=== PATIENT | female | born 1945 | race Caucasian/White ===

== ENCOUNTER 2018-08-28 08:31 | Emergency (ER) | payer OTHER, SELFPAY ==
[2018-08-28 08:36] VITALS: BP 122/66; PULSE 64; RESP 16; TEMP 36.5; O2SAT 100; BMI 24.4
--- NOTE | 2018-08-28 08:54 | ED.UPPEXIN ---
HPI - Extremity Injury (Upper) General Chief Complaint: Extremity Injury, Upper Stated Complaint: Fell last night, injured rt shoulder/back Time Seen by Provider: 08/28/18 08:46 Source: patient Mode of arrival: ambulatory Limitations: no limitations History of Present Illness HPI narrative: This is a 72-year-old female who comes to the emergency department with complaint of right shoulder pain and sort of lateral chest pain. Patient states last night she fell down the stairs. She [place], she thinks she got up to urinate about 1:00 a.m. and went to go the bathroom. In-home she normally lives in the bathroom is to the right, so she went to the right which is where the stairs are and fell down. She states that she isn't exactly sure how she felt something she sort of slid on her back. She did not hit her head. She has some abrasions on her shoulder and back, she has pain particularly in her right shoulder and with movement. As well as the right rib area. Patient states that she does not have any shortness of breath. She does not any difficulty with breathing. She denies loss of consciousness. She denies any vision changes, dizziness. No nausea no vomiting. She did have to urinate afterwards but had gotten up to go urinate. She has not had any other changes bowel she denies any other injuries to extremities. she takes blood pressure medication, she states she occasionally will take an aspirin but not regularly. She has had a tubal ligation ankle surgery. She states she has had hydrocodone in the past and it made her nauseated but no other major drug allergies. She states tetanus is up-to-date. Related Data Previous Rx's Medication Instructions Recorded tramadol [Ultram] 50 mg PO Q6H PRN #10 tab 08/28/18 Allergies Allergy/AdvReac Type Severity Reaction Status Date / Time acetaminophen [From Vicodin] AdvReac Nausea Verified 08/28/18 08:41 hydrocodone [From Vicodin] AdvReac Nausea Verified 08/28/18 08:41 GENERIC: NKDA - NO KNOWN Allergy Unknown Uncoded 09/07/17 13:06 DRUG ALLERGIES Review of Systems Review of Systems ROS Unobtainable: All systems reviewed & are unremarkable except as noted in HPI and below Eyes Denies change in vision ENT Ears, Nose, Mouth, and Throat: Denies neck pain and Denies other (head injury) Cardiovascular Reports chest pain (right ribs ), Denies edema, Denies lightheadedness, Denies dyspnea and Denies dyspnea on exertion Respiratory Denies chest congestion, Denies cough, Denies excessive phlegm production, Denies pain with cough, Denies dyspnea, Denies dyspnea on exertion and Denies wheezing Gastrointestinal Gastrointestinal: Denies abdominal pain, Denies change in bowel habits, Denies fecal incontinence, Denies diarrhea, Denies nausea and Denies vomiting Genitourinary Denies hematuria, Denies flank pain, Denies urinary incontinence and Denies urinary urgency Musculoskeletal Reports as per HPI, Denies back pain, Reports arthralgias (right shoulder), Reports limited range of motion, Denies muscle weakness, Denies neck pain, Denies numbness, Denies tingling and Reports other (right sided/ribs) Integumentary/Breasts Reports wounds (abrasions) Neurologic Denies numbness and Denies tingling Allergic/Immunologic Denies wheezing [facility], [facility] Medical History (Updated 08/28/18 @ 10:02 by Susie Hobson DO) Hypertension (Chronic) Surgical History (Updated 08/28/18 @ 09:07 by Susie Hobson DO) H/O tubal ligation (Chronic) History of ankle surgery (Chronic) Exam Narrative Exam Narrative: GEN: Patient appears in moderate distress. HEAD: No evidence of trauma, no raccoon/Jeff sign. NECK: Nontender, painless range of motion, trachea midline Negative Nexus criteria, there is no line tenderness, distracting injury, altered mental status, neuro deficit, recent EtOH. EYES: PERRLA, EOMI ENT: External inspection normal, trachea is midline, TM's are normal no hemotypanum, Nares are clear, no septal hematoma, no dental or oral injury, airway is normal and with normal occlusion, No bony tenderness RESP: Chest is nontender and has symmetric movement, no ecchymosis, breath sounds are normal no crackles, wheezes or rales CVS: Heart sounds are normal, no murmur noted, No JVD. ABG/GI: Nontender, soft, normal bowel sounds, no distention, no organomegaly, pelvic rock is negative NEURO: Oriented AOx3, neuro is grossly intact, sensation and motor is normal all 4 extremities moving, cranial nerves II through XII are intact, GCS is 15 PSYCH: Normal mood and affect SKIN: Patient has a knee 3 x 5 cm abrasion on her left posterior shoulder she also has some small abrasions above the right shoulder. warm and dry, no crepitus and without decubitus BACK: No CVA tenderness, no vertebral tenderness, no step-off's, no crepitus EXT: Patient has some mild tenderness over the right shoulder, she does not wish to move the shoulder, she has equal pulp roller bilaterally, no bony tenderness of the elbow forearm or wrist or hand, hips are nontender, no pedal edema, normal color and temperature, normal range of motion of extremities with normal tendon exam, 2+ pulses in all four extremities Initial Vital Signs Initial Vital Signs: Vital Signs Temperature 97.7 F 08/28/18 08:36 Pulse Rate 64 08/28/18 08:36 Respiratory Rate 16 08/28/18 08:36 Blood Pressure 122/66 08/28/18 08:36 Pulse Oximetry 100 08/28/18 08:36 Scores GCS [place] coma scale eye opening: Spontaneous Nicole coma scale verbal response: Orientated [place] coma scale motor response: Obey commands [place] coma scale total score: 15 Course Orders Ordered: ED Orders 08/28/18 09:03 XR ribs RT min 3V w CXR1V Stat XR shoulder RT min 2V Stat Vital Signs - 8 hr 08/28/18 08:36 Temperature 97.7 F Pulse Rate 64 Respiratory Rate 16 Blood Pressure 122/66 Pulse Oximetry 100 MDM - Extremity Injury (Upper) Imaging Data Chest x-ray: Radiologist's impression: Josefa Romero 72 F [address] [address] XRay Report Signed Patient: Josefa Romero FMR#: [id number] : 8Acct:[id number] Age/Sex: 72 / FDate of Service: 08/28/18 Loc: ED Accession Number: [id number] Procedure: XR ribs RT min 3V w CXR1V Ordering Provider: Susie Hobson D.O. PROCEDURE: XR RIBS RT MIN 3V W CXR 1V INDICATIONS: right rib pain, right shoulder pain, fell down stairs 1am TECHNIQUE: 2 views of the right ribs were acquired, along with a single view chest. COMPARISON: None. FINDINGS: Surgical changes and devices: None. Bones and chest wall: No displaced rib fracture identified. No suspicious bony lesions. Overlying soft tissues appear unremarkable. Lungs and pleura: No pleural effusions or pneumothorax. Lungs appear clear. Mediastinum: Mediastinal contours appear normal. Heart size is normal. IMPRESSION: 1. No displaced rib fracture identified. Dictated by: Joaquin Nguyen M.D. on 08/28/2018 at 9:26 Approved by: Joaquin Nguyen M.D. on 08/28/2018 at 9:27 shoulder xray right: Radiologist's impression: Josefa Romero 72 F 1945 [place] [address] XRay Report Signed Patient: Josefa Romero FMR#: [id number] : 8Acct:[id number] Age/Sex: 72 / FDate of Service: 08/28/18 Loc: ED Accession Number: [id number] Procedure: XR shoulder RT min 2V Ordering Provider: Susie Hobson D.O. PROCEDURE: XR SHOULDER RT MIN 2V INDICATIONS: right shoulder pain, hurts to move. feel down stairs TECHNIQUE: 3 views of the shoulder were acquired. COMPARISON: None. FINDINGS: Bones: No fractures or dislocations. There is mild acromioclavicular joint degeneration. No suspicious bony lesions. Visualized ribs appear intact. Soft tissues: No suspicious soft tissue calcifications. IMPRESSION: 1. No fracture or subluxation. Dictated by: Joaquin Nguyen M.D. on 08/28/2018 at 9:27 Approved by: Joaquin Nguyen M.D. on 08/28/2018 at 9:28 [facility] Narrative Medical decision making narrative: Patient's chest x-ray, rib series as well as shoulder x-ray did not show any fracture. Patient is pretty tender in the shoulder and we discussed she could have muscle tear, such as rotator cuff, ligament or tendon involvement. Also discussed the patient's can occasionally have very small fractures that do not show until there is healing. Patient was placed in a sling, plan for follow-up with primary. She is given a short course of pain medication as they are staying [place] [employer] [place] is a very difficult for them to return for re-evaluation or pain medications if not controlled with ibuprofen or Tylenol. Patient and I discussed continuing range of motion in the shoulder to avoid frozen shoulder. She has a primary care Miguel Foley that she will set up for follow-up. Discharge Plan Departure Patient Disposition: Home Clinical Impression: Injury of right shoulder Qualifiers: Encounter type: initial encounter Qualified Code(s): S49.91XA - Unspecified injury of right shoulder and upper arm, initial encounter Abrasion of back Qualifiers: Encounter type: initial encounter Fall down stairs Qualifiers: Encounter type: initial encounter Qualified Code(s): W10.8XXA - Fall (on) (from) other stairs and steps, initial encounter Discharge Date/Time: 08/28/18 10:43 Interventions: ED Discharge Assessment Last Done: 08/28/18 10:42 Instructions: Shoulder Sprain Activity Restrictions/Additional Instructions: Follow-up with primary care in the next 5-7 days for recheck if symptoms are not improving. You may potentially have injury to the ligaments and/or tendons or muscles within the shoulder which will not show up on x-ray. You may take ibuprofen up to 800 mg every 8 hours as well as Tylenol up to a 1000 mg every 8 hours as needed for pain. Splint Care: Keep splint clean and dry. Elevated affected body part to decrease swelling. Make sure that you continue to move your shoulder through range of motion gently daily to avoid frozen shoulder. OK to use ice pack on the affected body part. Use for 15-20 minutes each time, for 5-6x per day. If you develop worsening pain, numbness, tingling, discoloration of the affected body part, loosen the sling, and either see your doctor for an urgent re-assessment, or return to the Emergency Department. Return to the Emergency Department for any new or worsening symptoms. Return to the emergency department for new or concerning symptoms, new weakness, numbness, loss of sensation or inability to move her arm, pallor or cyanosis. Prescriptions: New tramadol [Ultram] 50 mg tablet 50 mg PO Q6H PRN (Reason: pain) Qty: 10 RF: 0
--- NOTE | 2018-08-28 09:03 | DI.RAD.S_ITS ---
PROCEDURE: XR RIBS RT MIN 3V W CXR 1V INDICATIONS: right rib pain, right shoulder pain, fell down stairs 1am TECHNIQUE: 2 views of the right ribs were acquired, along with a single view chest. COMPARISON: None. FINDINGS: Surgical changes and devices: None. Bones and chest wall: No displaced rib fracture identified. No suspicious bony lesions. Overlying soft tissues appear unremarkable. Lungs and pleura: No pleural effusions or pneumothorax. Lungs appear clear. Mediastinum: Mediastinal contours appear normal. Heart size is normal. IMPRESSION: 1. No displaced rib fracture identified. Dictated by: Joaquin Nguyen M.D. on 08/28/2018 at 9:26 Approved by: Joaquin Nguyen M.D. on 08/28/2018 at 9:27
--- NOTE | 2018-08-28 09:03 | DI.RAD.S_ITS ---
PROCEDURE: XR SHOULDER RT MIN 2V INDICATIONS: right shoulder pain, hurts to move. feel down stairs TECHNIQUE: 3 views of the shoulder were acquired. COMPARISON: None. FINDINGS: Bones: No fractures or dislocations. There is mild acromioclavicular joint degeneration. No suspicious bony lesions. Visualized ribs appear intact. Soft tissues: No suspicious soft tissue calcifications. IMPRESSION: 1. No fracture or subluxation. Dictated by: Joaquin Nguyen M.D. on 08/28/2018 at 9:27 Approved by: Joaquin Nguyen M.D. on 08/28/2018 at 9:28
--- NOTE | 2018-08-28 09:09 | ED_ITS ---
HPI - Extremity Injury (Upper) General Chief Complaint: Extremity Injury, Upper Stated Complaint: Fell last night, injured rt shoulder/back Time Seen by Provider: 08/28/18 08:46 Source: patient Mode of arrival: ambulatory Limitations: no limitations History of Present Illness HPI narrative: This is a 72-year-old female who comes to the emergency department with complaint of right shoulder pain and sort of lateral chest pain. Patient states last night she fell down the stairs. [place], she thinks she got up to urinate about 1:00 a.m. and went to go the bathroom. In-home she normally lives in the bathroom is to the right, so she went to the right which is where the stairs are and fell down. She states that she isn't exactly sure how she felt something she sort of slid on her back. She did not hit her head. She has some abrasions on her shoulder and back, she has pain particularly in her right shoulder and with movement. As well as the right rib area. Patient states that she does not have any shortness of breath. She does not any difficulty with breathing. She denies loss of consciousness. She denies any vision changes, dizziness. No nausea no vomit ing. She did have to urinate afterwards but had gotten up to go urinate. She has not had any other changes bowel she denies any other injuries to extremities. she takes blood pressure medication, she states she occasionally will take an aspirin but not regularly. She has had a tubal ligation ankle surgery. She states she has had hydrocodone in the past and it made her nauseated but no other major drug allergies. She states tetanus is up-to-date. Related Data Previous Rx's Medication Instructions Recorded tramadol [Ultram] 50 mg PO Q6H PRN #10 tab 08/28/18 Allergies Allergy/AdvReac Type Severity Reaction Status Date / Time acetaminophen [From Vicodin] AdvReac Nausea Verified 08/28/18 08:41 hydrocodone [From Vicodin] AdvReac Nausea Verified 08/28/18 08:41 GENERIC: NKDA - NO KNOWN Allergy Unknown Uncoded 09/07/17 13:06 DRUG ALLERGIES Review of Systems Review of Systems ROS Unobtainable: All systems reviewed & are unremarkable except as noted in HPI and below Eyes Denies change in vision ENT Ears, Nose, Mouth, and Throat: Denies neck pain and Denies other (head injury) Cardiovascular Reports chest pain (right ribs ), Denies edema, Denies lightheadedness, Denies dyspnea and Denies dyspnea on exertion Respiratory Denies chest congestion, Denies cough, Denies excessive phlegm production, Denies pain with cough, Denies dyspnea, Denies dyspnea on exertion and Denies wheezing Gastrointestinal Gastrointestinal: Denies abdominal pain, Denies change in bowel habits, Denies fecal incontinence, Denies diarrhea, Denies nausea and Denies vomiting Genitourinary Denies hematuria, Denies flank pain, Denies urinary incontinence and Denies urinary urgency Musculoskeletal Reports as per HPI, Denies back pain, Reports arthralgias (right shoulder), Reports limited range of motion, Denies muscle weakness, Denies neck pain, Denies numbness, Denies tingling and Reports other (right sided/ribs) Integumentary/Breasts Reports wounds (abrasions) Neurologic Denies numbness and Denies tingling Allergic/Immunologic Denies wheezing [facility] Medical History (Updated 08/28/18 @ 10:02 by Susie Hobson DO) Hypertension (Chronic) Surgical History (Updated 08/28/18 @ 09:07 by Susie Hobson DO) H/O tubal ligation (Chronic) History of ankle surgery (Chronic) Exam Narrative Exam Narrative: GEN: Patient appears in moderate distress. HEAD: No evidence of trauma, no raccoon/Jeff sign. NECK: Nontender, painless range of motion, trachea midline Negative Nexus criteria, there is no line tenderness, distracting injury, altered mental status, neuro deficit, recent EtOH. EYES: PERRLA, EOMI ENT: External inspection normal, trachea is midline, TM's are normal no hemotypanum, Nares are clear, no septal hematoma, no dental or oral injury, airway is normal and with normal occlusion, No bony tenderness RESP: Chest is nontender and has symmetric movement, no ecchymosis, breath sounds are normal no crackles, wheezes or rales CVS: Heart sounds are normal, no murmur noted, No JVD. ABG/GI: Nontender, soft, normal bowel sounds, no distention, no organomegaly, pelvic rock is negative NEURO: Oriented AOx3, neuro is grossly intact, sensation and motor is normal all 4 extremities moving, cranial nerves II through XII are intact, GCS is 15 PSYCH: Normal mood and affect SKIN: Patient has a knee 3 x 5 cm abrasion on her left posterior shoulder she also has some small abrasions above the right shoulder. warm and dry, no crepitus and without decubitus BACK: No CVA tenderness, no vertebral tenderness, no step-off's, no crepitus EXT: Patient has some mild tenderness over the right shoulder, she does not wish to move the shoulder, she has equal director of exhibit development bilaterally, no bony tenderness of the elbow forearm or wrist or hand, hips are nontender, no pedal edema, normal color and temperature, normal range of motion of extremities with normal tendon exam, 2+ pulses in all four extremities Initial Vital Signs Initial Vital Signs: Vital Signs Temperature 97.7 F 08/28/18 08:36 Pulse Rate 64 08/28/18 08:36 Respiratory Rate 16 08/28/18 08:36 Blood Pressure 122/66 08/28/18 08:36 Pulse Oximetry 100 08/28/18 08:36 Scores GCS [place] coma scale eye opening: Spontaneous [place] coma scale verbal response: Orientated [place] coma scale motor response: Obey commands [place] coma scale total score: 15 Course Orders Ordered: ED Orders 08/28/18 09:03 XR ribs RT min 3V w CXR1V Stat XR shoulder RT min 2V Stat Vital Signs - 8 hr 08/28/18 08:36 Temperature 97.7 F Pulse Rate 64 Respiratory Rate 16 Blood Pressure 122/66 Pulse Oximetry 100 MDM - Extremity Injury (Upper) Imaging Data Chest x-ray: Radiologist's impression: Josefa Romero 72 F [address] [address] XRay Report Signed Patient: Josefa Romero FMR#: [id number] : 8Acct:[id number] Age/Sex: 72 / FDate of Service: 08/28/18 Loc: ED Accession Number: [id number] Procedure: XR ribs RT min 3V w CXR1V Ordering Provider: Susie Hobson D.O. PROCEDURE: XR RIBS RT MIN 3V W CXR 1V INDICATIONS: right rib pain, right shoulder pain, fell down stairs 1am TECHNIQUE: 2 views of the right ribs were acquired, along with a single view chest. COMPARISON: None. FINDINGS: Surgical changes and devices: None. Bones and chest wall: No displaced rib fracture identified. No suspicious bony lesions. Overlying soft tissues appear unremarkable. Lungs and pleura: No pleural effusions or pneumothorax. Lungs appear clear. Mediastinum: Mediastinal contours appear normal. Heart size is normal. IMPRESSION: 1. No displaced rib fracture identified. Dictated by: Joaquin Nguyen M.D. on 08/28/2018 at 9:26 Approved by: Joaquin Nguyen M.D. on 08/28/2018 at 9:27 shoulder xray right: Radiologist's impression: Josefa Romero 72 F [address] [address] XRay Report Signed Patient: Josefa Romero FMR#: [id number] : 8Acct:[id number] Age/Sex: 72 / FDate of Service: 08/28/18 Loc: ED Accession Number: [id number] Procedure: XR shoulder RT min 2V Ordering Provider: Susie Hobson D.O. PROCEDURE: XR SHOULDER RT MIN 2V INDICATIONS: right shoulder pain, hurts to move. feel down stairs TECHNIQUE: 3 views of the shoulder were acquired. COMPARISON: None. FINDINGS: Bones: No fractures or dislocations. There is mild acromioclavicular joint degeneration. No suspicious bony lesions. Visualized ribs appear intact. Soft tissues: No suspicious soft tissue calcifications. IMPRESSION: 1. No fracture or subluxation. Dictated by: Joaquin Nguyen M.D. on 08/28/2018 at 9:27 Approved by: Joaquin Nguyen M.D. on 08/28/2018 at 9:28 [facility] Narrative Medical decision making narrative: Patient's chest x-ray, rib series as well as shoulder x-ray did not show any fracture. Patient is pretty tender in the shoulder and we discussed she could have muscle tear, such as rotator cuff, ligament or tendon involvement. Also discussed the patient's can occasionally have very small fractures that do not show until there is healing. Patient was placed in a sling, plan for follow-up with primary. She is given a short course of pain medication [place] very [place] for them to return for re-evaluation or pain medications if not controlled with ibuprofen or Tylenol. Patient and I discussed continuing range of motion in the shoulder to avoid frozen shoulder. She has a primary care Miguel Foley that she will set up for follow-up. Discharge Plan Departure Patient Disposition: Home Clinical Impression: Injury of right shoulder Qualifiers: Encounter type: initial encounter Qualified Code(s): S49.91XA - Unspecified injury of right shoulder and upper arm, initial encounter Abrasion of back Qualifiers: Encounter type: initial encounter Fall down stairs Qualifiers: Encounter type: initial encounter Qualified Code(s): W10.8XXA - Fall (on) (from) other stairs and steps, initial encounter Discharge Date/Time: 08/28/18 10:43 Interventions: ED Discharge Assessment Last Done: 08/28/18 10:42 Instructions: Shoulder Sprain Activity Restrictions/Additional Instructions: Follow-up with primary care in the next 5-7 days for recheck if symptoms are not improving. You may potentially have injury to the ligaments and/or tendons or muscles within the shoulder which will not show up on x-ray. You may take ibuprofen up to 800 mg every 8 hours as well as Tylenol up to a 1000 mg every 8 hours as needed for pain. Splint Care: Keep splint clean and dry. Elevated affected body part to decrease swelling. Make sure that you continue to move your shoulder through range of motion gently daily to avoid frozen shoulder. OK to use ice pack on the affected body part. Use for 15-20 minutes each time, for 5-6x per day. If you develop worsening pain, numbness, tingling, discoloration of the affected body part, loosen the sling, and either see your doctor for an urgent re-assessment, or return to the Emergency Department. Return to the Emergency Department for any new or worsening symptoms. Return to the emergency department for new or concerning symptoms, new weakness, numbness, loss of sensation or inability to move her arm, pallor or cyanosis. Prescriptions: New tramadol [Ultram] 50 mg tablet 50 mg PO Q6H PRN (Reason: pain) Qty: 10 RF: 0
[2018-08-28 10:36] VITALS: BP 129/73; PULSE 54; RESP 16; O2SAT 100
--- NOTE | 2018-08-28 11:09 | PC.NURSE ---
limited rom due to pain, hurts extend and lateral movement, +distal cms intact.
== END 2018-08-28 10:43 | disposition home or self-care (01) ==
PROVIDERS: Emergency Provider Emergency Medicine
DX: S49.91XA Unspecified injury of right shoulder and upper arm, initial encounter (principal); R07.81 Pleurodynia; W10.9XXA Fall (on) (from) unspecified stairs and steps, initial encounter
CPT/HCPCS: 71101; 73030; 99282; 99283

== ENCOUNTER → 2022-01-05 13:48 | Outpatient (CLI) | payer MEDICARE, SELFPAY ==
--- NOTE | 2022-01-05 | DI.RAD.S_ITS ---
PROCEDURE: XR THORACIC SPINE 3V INDICATIONS: MID BACK PAIN TECHNIQUE: 3 views of the thoracic spine were acquired. COMPARISON: None. FINDINGS: Bones: No fractures or dislocations. Mild levocurvature. No suspicious bony lesions. Hrlh-ng-wlnrywit degenerative disc disease throughout the thoracic spine. The there are multiple prominent anterior and right lateral osteophytes at T6-T7, T7-T8, T8-T9, T9-T10, T10-T11 and T11-T12. 12 pairs of ribs are noted, and appear intact where visualized. Soft tissues: No paravertebral stripe thickening. IMPRESSION: 1. Moderate degenerative changes in thoracic spine. Dictated by: Jeny Tellez M.D. on 01/05/2022 at 21:52 Approved by: Jeny Tellez M.D. on 01/05/2022 at 21:53
== END ==
PROVIDERS: PCP Family Medicine; Referring Provider Chiropractor; Visit Provider Chiropractor
DX: M54.6 Pain in thoracic spine (principal); M47.814 Spondylosis without myelopathy or radiculopathy, thoracic region
CPT/HCPCS: 72070

== ENCOUNTER 2023-08-24 07:32 | Emergency (ER) | payer MEDICARE, SELFPAY ==
[2023-08-24 07:35] VITALS: BP 139/72; PULSE 66; RESP 14; TEMP 36.2; O2SAT 99; BMI 23.3
[2023-08-24 07:38] VITALS: BP 139/72; PULSE 68; O2SAT 97
--- NOTE | 2023-08-24 07:41 | DI.US.S_ITS ---
PROCEDURE: US PERIPH VENOUS LOW EXTREM RT INDICATIONS: INNER THIGH PAIN, CRAMPING TECHNIQUE: Real-time imaging, as well as color and pulse Doppler interrogation, were performed of the lower extremity deep veins from the inguinal ligament to the popliteal fossa, with documentation of the visualized calf veins. COMPARISON: None. FINDINGS: The common femoral, femoral, popliteal, and the visualized calf veins are normally compressible, and free of intraluminal thrombus. Color and pulse Doppler demonstrate normal phasic intraluminal flow. There is normal augmentation response to distal compression maneuver. IMPRESSION: Negative right lower extremity duplex venous ultrasound for DVT. Dictated by: Chirag Hoff M.D. on 08/24/2023 at 8:25 Approved by: Chirag Hoff M.D. on 08/24/2023 at 8:27
--- NOTE | 2023-08-24 07:51 | ED.EXTPRO ---
HPI - Extremity Problem General Chief complaint: Extremity Problem,Nontraumatic Stated complaint: Inner Thigh Pain, Cramping Time Seen by Provider: 08/24/23 07:34 Source: patient Mode of arrival: Ambulatory History of Present Illness HPI Narrative: 77-year-old female with no significant past medical history presents by private vehicle from home for right inner thigh cramping and pain. Patient states she has had intermittent cramping for weeks, but last night she stated it felt like ?the worst Charley horse I have ever had?. She states she was traveling soon and is here for evaluation to make sure that nothing dangerous is going on. Currently denies pain. Denies numbness, weakness, tingling of her extremities. No history of DVT. Denies swelling. Related Data Previous Rx's Medication Instructions Recorded tramadol 50 mg tablet (Ultram) 50 mg PO Q6H PRN pain #10 tabs 08/28/18 methocarbamol 500 mg tablet 500 mg PO TID #30 tabs 08/24/23 Allergies Allergy/AdvReac Type Severity Reaction Status Date / Time No Known Drug Allergies Allergy Verified 08/24/23 07:41 Review of Systems Review of Systems Narrative: Negative except as noted above Patient History Medical History Hypertension Surgical History H/O tubal ligation History of ankle surgery Social History Smoking Status: Never smoker Smoking Status: Never smoker alcohol intake frequency: 0-2 drinks per day Substance Use Type: does not use Exam Initial Vital Signs Initial Vital Signs: Vital Signs Temperature 97.1 F L 08/24/23 07:35 Pulse Rate 66 08/24/23 07:35 Respiratory Rate 14 08/24/23 07:35 Blood Pressure 139/72 08/24/23 07:35 Pulse Oximetry 99 08/24/23 07:35 Oxygen Delivery Method Room Air 08/24/23 07:35 Const: Awake, alert, no acute distress, nontoxic appearing Cardiac: regular rate, regular rhythm RESP: unlabored, clear bilaterally, no wheezing GI: Soft, nontender, nondistended, no rebound, no guarding MSK: Atraumatic, full range of motion, pulses equal Skin: Warm, Dry, intact, no rashes Neuro: AO x3, CN II-XII grossly intact, moves all extremities Course Orders Ordered: ED Orders 08/24/23 07:41 US periph venous low extrem rt Stat 08/24/23 07:56 CBC Auto Diff [Complete Blood Count AUTO DIFF] Stat CMP [Comprehensive Metabolic Panel] Stat MAG [Magnesium] Stat PT [Prothrombin Time INR] Stat Vital Signs Vital signs: Vital Signs - 8 hr 08/24/23 07:35 08/24/23 07:38 08/24/23 07:38 Temperature 97.1 F L Pulse Rate 66 68 Respiratory Rate 14 Blood Pressure 139/72 139/72 Pulse Oximetry 99 97 Oxygen Delivery Method Room Air MDM - Extremity (Nontraumatic) Differential Diagnosis Differential diagnosis: Likely cellulitis, lower extremity edema and deep vein thrombosis of lower extremity Lab Data 08/24/23 07:56 08/24/23 07:56 Labs: Lab Results 08/24/23 Range/Units 07:56 WBC 6.8 (4.5-11.0) X10^3/uL RBC 4.28 (4.0-5.2) X10^6/uL Hgb 13.2 (12.0-16.0) g/dL Hct 38.5 (36-46) % MCV 89.9 (80-100) fL MCH 30.8 (26-34) PG MCHC 34.2 (30-36) % RDW 12.7 (11.6-14.8) % Plt Count 206 (150-400) X10^3/uL Neut % (Auto) 62.1 (50-75) % Lymph % (Auto) 20.8 L (25-40) % Hunt % (Auto) 13.4 (3-14) % Eos % (Auto) 2.6 (2-4) % Baso % (Auto) 1.1 (0-2) % Neut # (Auto) 4200 (8967-4292) /uL Lymph # (Auto) 1400 (0433-6092) /uL Hunt # (Auto) 900 (0-900) /uL Eos # (Auto) 200 (0-450) /uL Baso # (Auto) 100 (0-100) /uL PT 13.4 H (9.4-12.5) SECONDS INR 1.2 (0.9-1.3) Sodium 138 (137-145) mmol/L Potassium 4.5 (3.4-5.1) mmol/L Chloride 108 H (98-107) mmol/L Carbon Dioxide 28 (22-32) mmol/L BUN 19 H (7-17) mg/dL Creatinine 0.87 (0.52-1.04) mg/dL Estimated GFR > 60 (>60) mL/min BUN/Creatinine Ratio 21.8 (6-22) Glucose 101 (80-110) mg/dL Calcium 9.5 (8.4-10.2) mg/dL Magnesium 2.1 (1.6-2.3) mg/dL Total Bilirubin 0.8 (0.2-1.3) mg/dL AST 28 (14-36) IU/L ALT 26 (<35) IU/L Alkaline Phosphatase 40 (38-126) U/L Total Protein 6.8 (6.3-8.2) g/dL Albumin 4.1 (3.5-5.0) g/dL Globulin 2.7 (1.7-4.1) g/dL Albumin/Globulin Ratio 1.5 (1.0-2.8) Imaging Data US - DVT: Radiologist's Impression: PROCEDURE: US PERIPH VENOUS LOW EXTREM RT INDICATIONS: INNER THIGH PAIN, CRAMPING TECHNIQUE: Real-time imaging, as well as color and pulse Doppler interrogation, were performed of the lower extremity deep veins from the inguinal ligament to the popliteal fossa, with documentation of the visualized calf veins. COMPARISON: None. FINDINGS: The common femoral, femoral, popliteal, and the visualized calf veins are normally compressible, and free of intraluminal thrombus. Color and pulse Doppler demonstrate normal phasic intraluminal flow. There is normal augmentation response to distal compression maneuver. IMPRESSION: Negative right lower extremity duplex venous ultrasound for DVT. Dictated by: Chirag Hoff M.D. on 08/24/2023 at 8:25 Approved by: Chirag Hoff M.D. on 08/24/2023 at 8:27 [facility] Narrative Medical decision making narrative: Well-appearing patient with intermittent cramping in her thigh, worst last night. Neurologically and vascularly intact, no obvious physical exam abnormalities. Laboratory work is reviewed, no leukocytosis, electrolytes are within normal limits including magnesium. Ultrasound negative for DVT. Unknown explanation for patient's symptoms. Patient informed of all labs and imaging findings, she was relieved to know that she does not have a blood clot. Recommended low-dose nightly magnesium supplements, increasing fluid intake, and follow up with primary care physician to see if this helps her cramping. A short course of muscle relaxers sent to pharmacy if patient would like to use them at night to prevent leg cramps, however explained that I was not certain if this would help or not. Discharge Plan Departure Patient Disposition: Home Clinical Impression: Cramp in lower leg Instructions: DI for Nocturnal Leg Cramps Activity Restrictions/Additional Instructions: Drink plenty of fluids. You may try a low dose magnesium supplement before bed to see if this helps. Muscle relaxers have been sent to the [facility] in [place], they may help, take 1 before bed to see how it affects you Prescriptions: New methocarbamol 500 mg tablet 500 mg PO TID Qty: 30 0RF No Action tramadol [Ultram] 50 mg tablet 50 mg PO Q6H PRN (Reason: pain) Qty: 10 0RF Referrals: Trav Durbin MD [Primary Care Provider] - Stand Alone Forms: Patient Portal/API
[2023-08-24 08:04] LABS: Add Manual Diff / Slide Review NO; Basophils Absolute Auto 100 /uL (0-100); Basophils Percent Auto 1.1 % (0-2); Eosinophils Absolute Auto 200 /uL (0-450); Eosinophils Percent Auto 2.6 % (2-4); Hematocrit 38.5 % (36-46); Hemoglobin 13.2 g/dL (12.0-16.0); Lymphocytes Absolute Auto 1400 /uL (1100-4500); Lymphocytes Percent Auto 20.8 % (25-40); Mean Corpuscular HGB Conc 34.2 % (30-36); Mean Corpuscular Hemoglobin 30.8 PG (26-34); Mean Corpuscular Volume 89.9 fL (80-100); Monocytes Absolute Auto 900 /uL (0-900); Monocytes Percent Auto 13.4 % (3-14); Neutrophils Absolute Auto 4200 /uL (1500-7000); Neutrophils Percent Auto 62.1 % (50-75); Platelet Count 206 X10^3/uL (150-400); Red Blood Cell Count 4.28 X10^6/uL (4.0-5.2); Red Cell Distribution Width 12.7 % (11.6-14.8); White Blood Cell Count 6.8 X10^3/uL (4.5-11.0)
--- NOTE | 2023-08-24 08:05 | PC.NURSE ---
pt states she has had some intermittent pain for the last month in this area but last night it was so bad she couldn't move it. describes the pain like a lucie horse pt denies pain currently, redness, warmth, swelling at any time.
[2023-08-24 08:11] LABS: INR 1.2 (0.9-1.3); Prothrombin Time 13.4 SECONDS (9.4-12.5)
[2023-08-24 08:17] LABS: Alanine Aminotransferase 26 IU/L (<35); Albumin 4.1 g/dL (3.5-5.0); Albumin Globulin Ratio 1.5 (1.0-2.8); Alkaline Phosphatase 40 U/L (38-126); Aspartate Aminotransferase 28 IU/L (14-36); BUN Creatinine Ratio 21.8 (6-22); Bilirubin Total 0.8 mg/dL (0.2-1.3); Blood Urea Nitrogen 19 mg/dL (7-17); Calcium 9.5 mg/dL (8.4-10.2); Carbon Dioxide 28 mmol/L (22-32); Chloride 108 mmol/L (98-107); Estimated Glomerular Filt Rate > 60 mL/min (>60); Globulin 2.7 g/dL (1.7-4.1); Glucose 101 mg/dL (80-110); HEMOLYSIS < 15 (0-50); Magnesium 2.1 mg/dL (1.6-2.3); Potassium 4.5 mmol/L (3.4-5.1); Sodium 138 mmol/L (137-145); Total Protein 6.8 g/dL (6.3-8.2)
== END 2023-08-24 09:08 | disposition home or self-care (01) ==
PROVIDERS: Emergency Provider Emergency Medicine; PCP Family Medicine
DX: R25.2 Cramp and spasm (principal)
CPT/HCPCS: 36415; 80053; 83735; 85025; 85610; 93971; 99283; 99284

== ENCOUNTER 2023-12-14 01:52 | Emergency (ER) | payer MEDICARE, SELFPAY ==
[2023-12-14] VITALS (12 sets, daily range): BP systolic 112–143; BP diastolic 56–67; PULSE 62–74; RESP 12–42; TEMP 36.3; O2SAT 87–100; BMI 25.7
--- NOTE | 2023-12-14 02:04 | ED.GENADULT ---
HPI - General Adult General Chief complaint: Nausea/Vomiting/Diarrhea Stated complaint: N/V/D Time Seen by Provider: 12/14/23 02:03 History of Present Illness HPI narrative: 77-year-old woman with a history of hypertension treated with atenolol presents with significant abdominal pain vomiting and diarrhea that has been present now for less than 24 hours. She does not describe blood in the stool or vomitus. She is still having significant retching with a completely empty stomach. Little p.o. intake over the last 24 hours. Complains of upper abdominal pain made worse with the severe retching. No recent fevers, cough, chills. No palpitations. Low-grade headache. Related Data Previous Rx's Medication Instructions Recorded tramadol 50 mg tablet (Ultram) 50 mg PO Q6H PRN pain #10 tabs 08/28/18 methocarbamol 500 mg tablet 500 mg PO TID #30 tabs 08/24/23 Allergies Allergy/AdvReac Type Severity Reaction Status Date / Time No Known Drug Allergies Allergy Verified 08/24/23 07:41 Review of Systems Review of Systems Narrative: Pertinent positive and negative findings as per HPI Patient History Medical History Hypertension Surgical History H/O tubal ligation History of ankle surgery Social History Smoking Status: Never smoker Smoking Status: Never smoker alcohol intake frequency: 0-2 drinks per day Substance Use Type: does not use Exam Initial Vital Signs Initial Vital Signs: Vital Signs Temperature 97.4 F L 12/14/23 01:57 Pulse Rate 64 12/14/23 01:57 Respiratory Rate 42 H 12/14/23 01:57 Blood Pressure 143/67 H 12/14/23 01:57 Pulse Oximetry 98 12/14/23 01:57 Oxygen Delivery Method Room Air 12/14/23 01:57 General: Acutely ill-appearing in obvious pain with continued retching HEENT: Dry mucous membranes, normal sclera with reactive pupils, Respiratory: Lungs are clear to auscultation, no wheezing no rales no rhonchi. Full and symmetrical air movement Cardiac: Tachycardic but otherwise Regular rate and rhythm no murmurs no bruits Abdomen: Soft, tender in the upper abdomen worse in the epigastric and left upper quadrant. No rebound or guarding. No flank pain Skin: Warm and dry, no rashes, poor overall skin turgor Neurologic: Grossly neurologically intact with no obvious asymmetries or abnormalities Extremities: No trauma, Psych: Cooperative, appropriate insight and affect Course Orders Ordered: ED Orders 12/14/23 02:05 Lactate (Lactic Acid) Stat 12/14/23 02:11 CT abdomen pelvis w con Stat XR chest 1V Stat Complete Blood Count AUTO DIFF Stat Comprehensive Metabolic Panel Stat Lipase Stat Magnesium Stat Troponin I Stat 12/14/23 02:12 EKG-12 Lead Stat 12/14/23 03:23 Blood Culture Stat 12/14/23 03:43 Urinalysis and Microscopic Stat Hydromorphone HCl (Hydromorphone 0.5 Mg Inj) 0.5 mg IV Q15MIN PRN PRN Reason: Pain, Last Admin: 12/14/23 02:21 Dose: 0.5 mg Discontinued Medications Sodium Chloride (Normal Saline 0.9%) 1,000 mls @ 1,000 mls/hr IV BOLUS ONE Stop: 12/14/23 03:10 Last Infusion: 12/14/23 03:41 Dose: Infused Piperacillin Sod/Tazobactam (Sod 4.5 gm/ Sodium Chloride) 100 mls @ 200 mls/hr IV NOW ONE Stop: 12/14/23 02:57 Last Infusion: 12/14/23 04:14 Dose: Infused Ondansetron HCl (Ondansetron 4 Mg/2 Ml Inj) 4 mg IV NOW ONE Stop: 12/14/23 02:12 Last Admin: 12/14/23 02:21 Dose: 4 mg Vital Signs Vital signs: Vital Signs - 8 hr 12/14/23 01:57 Temperature 97.4 F L Pulse Rate 64 Respiratory Rate 42 H Blood Pressure 143/67 H Pulse Oximetry 98 Oxygen Delivery Method Room Air Medical Decision Making Lab Data 12/14/23 02:05 12/14/23 02:05 Labs: Lab Results 12/14/23 12/14/23 12/14/23 Range/Units 02:05 03:43 04:29 WBC 15.7 H (4.5-11.0) X10^3/uL RBC 4.84 (4.0-5.2) X10^6/uL Hgb 14.8 (12.0-16.0) g/dL Hct 43.4 (36-46) % MCV 89.5 (80-100) fL MCH 30.5 (26-34) PG MCHC 34.1 (30-36) % RDW 13.3 (11.6-14.8) % Plt Count 237 (150-400) X10^3/uL Neut % (Auto) 86.8 H (50-75) % Lymph % (Auto) 6.5 L (25-40) % [place] % (Auto) 5.8 (3-14) % Eos % (Auto) 0.1 L (2-4) % Baso % (Auto) 0.8 (0-2) % Neut # (Auto) 46001 H (6204-3952) /uL Lymph # (Auto) 1000 L (7171-3074) /uL [place] # (Auto) 900 (0-900) /uL Eos # (Auto) 0 (0-450) /uL Baso # (Auto) 100 (0-100) /uL Sodium 139 (137-145) mmol/L Potassium 3.8 (3.4-5.1) mmol/L Chloride 103 (98-107) mmol/L Carbon Dioxide 24 (22-32) mmol/L BUN 21 H (7-17) mg/dL Creatinine 0.84 (0.52-1.04) mg/dL Estimated GFR > 60 (>60) mL/min BUN/Creatinine Ratio 25.0 H (6-22) Glucose 186 H (80-110) mg/dL Lactate 3.1 H 1.6 (0.7-2.1) mmol/L Calcium 9.5 (8.4-10.2) mg/dL Magnesium 2.1 (1.6-2.3) mg/dL Total Bilirubin 0.9 (0.2-1.3) mg/dL AST 32 (14-36) IU/L ALT 33 (<35) IU/L Alkaline Phosphatase 56 (38-126) U/L Troponin I < 0.012 (0.01-0.034) ng/mL Total Protein 8.1 (6.3-8.2) g/dL Albumin 5.0 (3.5-5.0) g/dL Globulin 3.1 (1.7-4.1) g/dL Albumin/Globulin Ratio 1.6 (1.0-2.8) Lipase 101 (23-300) U/L Urine Color Yellow Urine Appearance Clear Urine pH 8.0 (4.5-8.0) Ur Specific [place] 1.010 (1.000-1.035) Urine Protein Negative (Negative) Urine Glucose (UA) Negative (Negative) g/dL Urine Ketones Trace H (NEGATIVE) Urine Occult Blood Negative (Negative) Urine Nitrate Negative (Negative) Urine Bilirubin Negative (NEGATIVE) Urine Urobilinogen 0.2 (0.2) E.U./dL Ur Leukocyte Esterase Negative (NEGATIVE) Urine RBC None seen (0-5/HPF) Urine WBC None seen (0-5/HPF) Ur Squamous Epith Cells 0-1 /hpf (0-5/HPF) Urine Bacteria None seen (None) Ur Culture Indicated? Cult not indicated Vol Urine Centrifuged 10ml (spun) Urine Dip Bedside Urine Glucose Negative Bedside Urine Bilirubin - Negative Bedside Urine Ketone +/- 5 Urine Specific [place] 1.005 Bedside Urine Occult Blood - Negative Bedside Urine pH 8.5 Bedside Urine Protein - Negative Bedside Urine Urobilinogen - Negative Bedside Urine Nitrite - Negative Bedside Urine Leukocytes - Negative Esterase Point of care testing: Urine Dip Bedside Urine Glucose Negative Bedside Urine Bilirubin - Negative Bedside Urine Ketone +/- 5 Urine Specific [place] 1.005 Bedside Urine Occult Blood - Negative Bedside Urine pH 8.5 Bedside Urine Protein - Negative Bedside Urine Urobilinogen - Negative Bedside Urine Nitrite - Negative Bedside Urine Leukocytes - Negative Esterase MDM Narrative Medical decision making narrative: CC: Nausea vomiting and diarrhea for 24 hours Complicating co-morbidities: Hypertension Data collected from: patient, son Differential considered: Viral syndrome, pancreatitis, Boerhaave syndrome Exam documented above, pertinent findings include: Significant upper abdominal pain, nausea% stent retching, lungs are clear remainder of exam is benign Lab Test results independently reviewed as above. Pertinent findings: CBC shows a white count of 15.7 with 87% neutrophils. No significant anemia Chemistries show normal renal function, normal electrolytes. No elevated liver studies Lipase is unremarkable Troponin is undetectable Urinalysis is unremarkable Initial lactic acid is 3.1, after a L of fluid on repeat his down to 1.6 Independently reviewed EKG: Sinus rhythm rate of 69 No acute ischemic changes Imaging studies independently reviewed: Chest x-ray shows no acute cardiopulmonary abnormality CT scan of the abdomen shows scattered air-fluid levels within nondilated loops of small bowel. Differential includes gastroenteritis, ileus or evolving small bowel obstruction. No appendicitis, diverticulitis or obstructive uropathy. Treatments: L of fluid, half a mg of Dilaudid, 4 mg of Zofran and 4.5 mg of Zosyn Re-evaluations:430am On re-evaluation patient is smiling, happy abdominal pain has essentially resolved, nausea and vomiting are completely resolved. She is feeling significantly better. Interested in trying some water and juice. We will repeat lactic acid. At this point I suspect that this is more a gastroenteritis rather than significant bacterial infection. If the water and juice seemed to stay down, lactic acid returns improved and she continues to feel well she likely will be able to go home. Abdomen is reexamined and she does not have any rebound or guarding to suggest an acute surgical abdomen. Discussion: 77-year-old woman presents with significant abdominal pain with vomiting. She has given a L of fluid, single half a mg of Dilaudid, Zofran and is feeling significantly improved. White count was initially elevated which may be demargination. She does not have a fever other symptoms of obvious infection. CT scan of the abdomen does not show obvious infection or reason for hospitalization. Given her resolution of symptoms CT scan findings are most likely consistent with an enteritis rather than an evolving bowel obstruction. She does not have a surgical abdomen or any residual pain fever or nausea at time of discharge. She was able to drink water without any difficulties. Reviewed findings and reasons to return to the emergency department. With shared decision-making we opted to have her go home recognizing that if symptoms change in any way she does need to return and likely would need hospital admission. Questions are answered and she is discharged home Discharge Plan Departure Patient Disposition: Home Clinical Impression: Gastroenteritis Instructions: DI for Viral Gastroenteritis -- Adult Activity Restrictions/Additional Instructions: Thank you for coming in today Your blood work suggested mild dehydration which we treated with a L of intravenous fluid. I was concern for infection and you did receive a dose of antibiotics in the emergency department. When you were feeling better however I am not seeing any obvious source for infection and do not think that we need to continue antibiotics at this time. We did a CT scan of your abdomen which suggest that you probably have a gastroenteritis with fluid through your small bowel but no evidence of appendicitis, pancreatitis, gallbladder disease bowel obstruction or reason for hospitalization or surgical intervention at this time You can use Zofran every 8 hours as needed for nausea As you begin resuming eating think simple to digest foods such as bananas, rice, applesauce, toast with plenty of water for the 1st 24 hours. If you find that you are getting worse or develop any new symptoms, please feel free to return to the emergency department for further evaluation. Prescriptions: No Action tramadol [Ultram] 50 mg tablet 50 mg PO Q6H PRN (Reason: pain) Qty: 10 0RF methocarbamol 500 mg tablet 500 mg PO TID Qty: 30 0RF Referrals: Trav Durbin MD [Primary Care Provider] - Stand Alone Forms: Patient Portal/API
--- NOTE | 2023-12-14 02:11 | DI.CT.S_ITS ---
PROCEDURE: CT ABDOMEN PELVIS W CON INDICATIONS: Severe upper abdominal pain acute onset TECHNIQUE: After the administration of intravenous contrast, axial sections acquired from the lung bases to the pubic symphysis. Coronal and sagittal reformats were performed. For radiation dose reduction, the following was used: automated exposure control, adjustment of mA and/or kV according to patient size. COMPARISON: None. FINDINGS: Image quality: Diagnostic. Lower Chest: No significant findings. ABDOMEN: Liver: No solid mass. Benign right hepatic cyst. Gallbladder: Calcific gallstone is seen within a Phrygian cap of the gallbladder. No surrounding inflammatory changes. Biliary ducts: No biliary dilation. Pancreas: No ductal dilation. Spleen: Size is within normal limits. Adrenal Glands: No adrenal nodules. Kidneys and Ureters: No hydronephrosis. No solid mass. No complex renal cystic lesion which requires follow up. Stomach and Bowel: A few colonic diverticula are seen without signs of acute diverticulitis. There is fluid material throughout the ascending and transverse colon. Mildly prominent fluid-filled loops of small bowel are seen throughout the mid to lower abdomen, which are nondilated. Peritoneum: No abnormal intraperitoneal fluid. No free air. Ventral Wall: No significant ventral hernia. Abdominal Nodes: No retroperitoneal or mesenteric adenopathy by size criteria. Vessels: Aorta and inferior vena cava are normal in size. PELVIS: Pelvic Organs: Unremarkable. Bladder: No bladder wall thickening, accounting for underdistention. Pelvic Nodes: No enlarged lymph nodes. Miscellaneous: No inguinal hernias are seen. Bones: No aggressive osseous abnormality. Degenerative changes are seen in the spine and pubic symphysis. IMPRESSION: 1. Nondilated fluid-filled loops of small bowel are seen in there is food material in the a seen in transverse colon. Findings are suspicious for a possible nonspecific enteritis or enterocolitis. 2. Cholelithiasis. There is no significant discrepancy when compared to the overnight preliminary report. Approved by: Andrey Warren M.D. on 12/14/2023 at 8:20
--- NOTE | 2023-12-14 02:11 | DI.RAD.S_ITS ---
PROCEDURE: XR CHEST 1V INDICATIONS: Upper abdominal to chest pain TECHNIQUE: One view of the chest was acquired. COMPARISON: None. FINDINGS: Surgical changes and devices: None. Lungs and pleura: Lungs are clear. No pleural effusions or pneumothorax. Mediastinum: Mediastinal contours appear normal. Heart size is normal. Bones and chest wall: No suspicious bony lesions. Overlying soft tissues appear unremarkable. IMPRESSION: No acute cardiopulmonary abnormality is seen. There is no significant discrepancy when compared to the overnight preliminary report. Approved by: Andrey Warren M.D. on 12/14/2023 at 8:15
--- NOTE | 2023-12-14 02:12 | EKG_ITS ---
[address] [address] Test Date: 2023-12-14 Pat Name: Josefa Romero Department: [facility] Room: Gender: Female [employer]: VALDO : 1945 Requested By: Order Number: [id number] Reading MD: Wing Han MD Measurements Intervals [place] Rate: 69 P: 48 PA: 186 QRS: 8 QRSD: 108 T: 38 QT: 440 QTc: 471 Interpretive Statements Normal sinus rhythm Low voltage QRS Electronically Signed On 12-14-2023 7:50:06 PDT by Wing Han MD
[2023-12-14 02:20] LABS: Add Manual Diff / Slide Review NO; Basophils Absolute Auto 100 /uL (0-100); Basophils Percent Auto 0.8 % (0-2); Eosinophils Absolute Auto 0 /uL (0-450); Eosinophils Percent Auto 0.1 % (2-4); Hematocrit 43.4 % (36-46); Hemoglobin 14.8 g/dL (12.0-16.0); Lymphocytes Absolute Auto 1000 /uL (1100-4500); Lymphocytes Percent Auto 6.5 % (25-40); Mean Corpuscular HGB Conc 34.1 % (30-36); Mean Corpuscular Hemoglobin 30.5 PG (26-34); Mean Corpuscular Volume 89.5 fL (80-100); Monocytes Absolute Auto 900 /uL (0-900); Monocytes Percent Auto 5.8 % (3-14); Neutrophils Absolute Auto 13600 /uL (1500-7000); Neutrophils Percent Auto 86.8 % (50-75); Platelet Count 237 X10^3/uL (150-400); Red Blood Cell Count 4.84 X10^6/uL (4.0-5.2); Red Cell Distribution Width 13.3 % (11.6-14.8); White Blood Cell Count 15.7 X10^3/uL (4.5-11.0)
[2023-12-14] MEDS: SODIUM CHLORIDE 0.9% 1,000 ML 1000 ML IV (02:20)
[2023-12-14] MEDS: ONDANSETRON 4 MG/2 ML INJ IV (02:21)
[2023-12-14] MEDS: HYDROMORPHONE 0.5 MG INJ IV (02:21)
[2023-12-14 02:28] LABS: Alanine Aminotransferase 33 IU/L (<35); Albumin Globulin Ratio 1.6 (1.0-2.8); Alkaline Phosphatase 56 U/L (38-126); Aspartate Aminotransferase 32 IU/L (14-36); Bilirubin Total 0.9 mg/dL (0.2-1.3); Blood Urea Nitrogen 21 mg/dL (7-17); Calcium 9.5 mg/dL (8.4-10.2); Carbon Dioxide 24 mmol/L (22-32); Chloride 103 mmol/L (98-107); Estimated Glomerular Filt Rate > 60 mL/min (>60); Globulin 3.1 g/dL (1.7-4.1); Glucose 186 mg/dL (80-110); HEMOLYSIS < 15 (0-50); Lipase 101 U/L (23-300); Magnesium 2.1 mg/dL (1.6-2.3); Potassium 3.8 mmol/L (3.4-5.1); Sodium 139 mmol/L (137-145); Total Protein 8.1 g/dL (6.3-8.2)
[2023-12-14 02:39] LABS: Troponin I < 0.012 ng/mL (0.01-0.034)
[2023-12-14 03:11] LABS: Lactate (Lactic Acid) 3.1 mmol/L (0.7-2.1)
[2023-12-14] MEDS: PIPERACILLIN/TAZO 4.5 GM in SODIUM CHLORIDE 0.9% 100 ML IV (03:38)
[2023-12-14 03:58] LABS: Appearance Urine UA CLEAR; Bilirubin Urine UA NEGATIVE (NEGATIVE); Color Urine UA YELLOW; Glucose Urine UA NEGATIVE (Negative); Ketones Urine UA TRACE (NEGATIVE); Leukocyte Esterase Urine UA NEGATIVE (NEGATIVE); Nitrite Urine UA NEGATIVE (Negative); Occult Blood Urine UA NEGATIVE (Negative); Protein Urine UA NEGATIVE (Negative); Urobilinogen Urine UA 0.2 E.U./dL (0.2)
[2023-12-14 04:05] LABS: Bacteria Urine None Seen; Culture Indicated Urine Cult Not Indicated; RBC Urine None Seen (0-5/HPF); Squamous Epithelial Cell Urine 0-1 /HPF (0-5/HPF); Urine Volume 10mL (spun); WBC Urine None Seen (0-5/HPF)
[2023-12-14 04:36] LABS: Reflexed Lactate in 2 Hours Y
[2023-12-14 04:56] LABS: Lactate 2HR (Lactic Acid Rflx) 1.6 mmol/L (0.7-2.1)
[2023-12-14] MEDS: ONDANSETRON 4 MG ODT PREPACK 1 BOTTLE MISC (05:50)
== END 2023-12-14 05:56 | disposition home or self-care (01) ==
PROVIDERS: Emergency Provider Emergency Medicine; PCP Family Medicine
DX: K52.9 Noninfective gastroenteritis and colitis, unspecified (principal); R51.9 Headache, unspecified; I10 Essential (primary) hypertension
CPT/HCPCS: 71045; 74177; 80053; 81001; 81003; 83605; 83690; 83735; 84484; 85025; 87040; 93005; 93010; 96361; 96365; 96375; 99283; 99284; J1170; J2405; J2543; Q9967

== ENCOUNTER 2025-01-08 08:20 | Emergency (ER) | payer MEDICARE, OTHER, SELFPAY ==
[2025-01-08 08:26] VITALS: BP 175/81; PULSE 62; RESP 17; TEMP 36.5; O2SAT 97; BMI 25.6
--- NOTE | 2025-01-08 08:39 | ED.DIZZY ---
HPI - Dizziness General Chief Complaint: Dizziness Stated Complaint: Vertigo x 3 days Time Seen by Provider: 01/08/25 08:32 Mode of arrival: Ambulatory History of Present Illness HPI Narrative: 79-year-old female history of hypertension presents with dizziness lightheadedness room spinning sensation along with headache for the past 3 days despite using ibuprofen for which she says works for her vertigo in the past. Patient has been having sinus congestion lately and did recent see ENT for which they did not find any acute process. She denies chest pain, shortness breath, cough, sore throat, nausea, vomiting, diarrhea. Other than what is stated 14 point review of system is negative. Related Data Previous Rx's ?Medication ?Instructions ?Recorded tramadol 50 mg tablet (Ultram) 50 mg PO Q6H PRN pain #10 tabs 08/28/18 methocarbamol 500 mg tablet 500 mg PO TID #30 tabs 08/24/23 meclizine 25 mg tablet 25 mg PO TID #30 tabs 01/08/25 Allergies Allergy/AdvReac Type Severity Reaction Status Date / Time No Known Drug Allergies Allergy Verified 01/08/25 08:26 Review of Systems Review of Systems ROS Unobtainable: All systems reviewed & are unremarkable except as noted in HPI and below Patient History Medical History Hypertension Surgical History H/O tubal ligation History of ankle surgery Social History Smoking Status: Never smoker Smoking Status: Never smoker alcohol intake frequency: 0-2 drinks per day Exam Narrative Exam Narrative: GENERAL: [79] year old patient appears stated age. Well-developed patient, in mild distress. HEAD: Atraumatic. Normocephalic. EYES: Pupils equal round and reactive. Extraocular motions intact. No scleral icterus. No injection or drainage. ENT: Nose without bleeding, purulent drainage. Throat without erythema, tonsillar hypertrophy or exudate. Airway patent. NECK: Trachea midline. Non tender CARDIOVASCULAR: Regular rate and rhythm without murmurs, gallops, or rubs. RESPIRATORY: Clear to auscultation. Breath sounds equal bilaterally. No wheezes, rales, or rhonchi. GASTROINTESTINAL: Abdomen soft, non-tender, nondistended. EXTREMITIES: No edema or joint tenderness. BACK: Nontender without deformity or crepitance. No flank tenderness. NEURO: AOx3. GCS 15 nonfocal neuro exam alert and oriented x4 SKIN: No rash or erythema of visible areas Initial Vital Signs Initial Vital Signs: Vital Signs Temperature 97.7 F 01/08/25 08:26 Pulse Rate 62 01/08/25 08:26 Respiratory Rate 17 01/08/25 08:26 Blood Pressure 175/81 H 01/08/25 08:26 Pulse Oximetry 97 01/08/25 08:26 Oxygen Delivery Method Room Air 01/08/25 08:26 Scores NIH Stroke Scale Level of Conciousness: Alert, keenly responsive Ask month/age: Answers both questions correctly. Open/close eyes, close hand: Performs both tasks correctly Best gaze horizontal: Normal Visual almanza: No visual loss Facial palsy: Normal symetrical movement Left arm drift: No drift for full 10 sec Right arm drift: No drift for full 10 sec Left leg drift: No drift for full 5 sec Right leg drift: No drift for full 5 sec Limb ataxia: Absent Sensory on face/arms/legs: Normal, no sensory loss Best language: No aphasia, normal Dysarthria: Normal Extinction or inattention: No abnormality Total NIH Stroke scale score: 0 Course Orders Ordered: ED Orders 01/08/25 08:39 CT head/brain wo con Stat XR chest 1V Stat EKG-12 Lead Stat 01/08/25 08:55 Complete Blood Count AUTO DIFF Stat Comprehensive Metabolic Panel Stat Lipase Stat Troponin & CK Cardiac Panel Stat 01/08/25 09:09 CT angio head and neck Stat Vital Signs Vital signs: Vital Signs - 8 hr 01/08/25 08:26 Temperature 97.7 F Pulse Rate 62 Respiratory Rate 17 Blood Pressure 175/81 H Pulse Oximetry 97 Oxygen Delivery Method Room Air MDM - Dizziness Lab Data 01/08/25 08:55 01/08/25 08:55 Labs: Lab Results 01/08/25 Range/Units 08:55 WBC 6.7 (4.5-11.0) X10^3/uL RBC 4.63 (4.0-5.2) X10^6/uL Hgb 14.4 (12.0-16.0) g/dL Hct 42.4 (36-46) % MCV 91.7 (80-100) fL MCH 31.1 (26-34) PG MCHC 33.9 (30-36) % RDW 12.7 (11.6-14.8) % Plt Count 201 (150-400) X10^3/uL Neut % (Auto) 47.1 L (50-75) % Lymph % (Auto) 31.1 (25-40) % Drew % (Auto) 10.1 (3-14) % Eos % (Auto) 10.3 H (2-4) % Baso % (Auto) 1.4 (0-2) % Neut # (Auto) 3100 (8962-9192) /uL Lymph # (Auto) 2100 (5381-4117) /uL Drew # (Auto) 700 (0-900) /uL Eos # (Auto) 700 H (0-450) /uL Baso # (Auto) 100 (0-100) /uL Sodium 135 L (137-145) mmol/L Potassium 4.2 (3.4-5.1) mmol/L Chloride 104 (98-107) mmol/L Carbon Dioxide 24 (22-32) mmol/L BUN 14 (7-17) mg/dL Creatinine 0.83 (0.52-1.04) mg/dL Estimated GFR > 60 (>60) mL/min BUN/Creatinine Ratio 16.9 (6-22) Glucose 103 H (70-99) mg/dL Calcium 9.2 (8.4-10.2) mg/dL Total Bilirubin 0.6 (0.2-1.3) mg/dL AST 25 (14-36) IU/L ALT 26 (<35) IU/L Alkaline Phosphatase 56 (38-126) U/L Total Creatine Kinase 57 (30-135) U/L Troponin I < 0.012 (0.01-0.034) ng/mL Total Protein 7.0 (6.3-8.2) g/dL Albumin 4.3 (3.5-5.0) g/dL Globulin 2.7 (1.7-4.1) g/dL Albumin/Globulin Ratio 1.6 (1.0-2.8) Lipase 373 H (23-300) U/L Imaging Data Chest x-ray: Radiologist's Impression: [address] [address] XRay Report Signed Patient: Josefa Romero MR#: [id number] : 1945 Acct:[id number] Age/Sex: 79 / F Date of Service: 01/08/25 Loc: ED Accession Number: [id number] Procedure: XR chest 1V Ordering Provider: Wing Sagastume D.O. PROCEDURE: XR CHEST 1V INDICATIONS: chest pain TECHNIQUE: One view of the chest was acquired. COMPARISON: [facility], , XR CHEST 1V, 12/14/2023, 2:29. FINDINGS: Surgical changes and devices: None. Lungs and pleura: Lungs are clear. No pleural effusions or pneumothorax. Mediastinum: Mediastinal contours appear normal. Heart size is normal. Bones and chest wall: No suspicious bony lesions. Overlying soft tissues appear unremarkable. IMPRESSION: No acute cardiopulmonary abnormality is seen. Dictated by: Niesha Spring MD, PhD on 01/08/2025 at 9:31 Approved by: Niesha Spirng MD, PhD on 01/08/2025 at 9:33 CT scan - head: Radiologist's Impression: [address] [address] [address] Scan Report Signed Patient: Josefa Romero MR#: [id number] : 1945 Acct:[id number] Age/Sex: 79 / F Date of Service: 01/08/25 Loc: ED Accession Number: [id number] Procedure: CT head/brain wo con Ordering Provider: Wing Sagastume D.O. PROCEDURE: CT HEAD/BRAIN WO CON INDICATIONS: dizziness TECHNIQUE: Noncontrast 4.5 mm thick angled axial sections acquired from the foramen magnum to the vertex, with coronal and sagittal reformats. For radiation dose reduction, the following was used: automated exposure control, adjustment of mA and/or kV according to patient size. COMPARISON: None. FINDINGS: Image quality: Diagnostic. CSF spaces: Basal cisterns are patent. No extra-axial fluid collections. The ventricles are symmetric in size and shape. Brain: No intracranial bleeds or mass effect. There is cerebral volume loss, with resultant ventricular and sulcal prominence. There are periventricular and deep white matter chronic small vessel ischemic changes. There is intracranial internal carotid artery atherosclerosis. Skull and face: Calvarium and visualized facial bones appear intact, without suspicious lesions. Sinuses: Visualized sinuses and mastoids are clear. IMPRESSION: No acute intracranial pathology. CTA - brain/neck: Radiologist's Impression: [address] [address] [address] Scan Report Signed Patient: Josefa Romero MR#: [id number] : 1945 Acct:[id number] Age/Sex: 79 / F Date of Service: 01/08/25 Loc: ED Accession Number: [id number] Procedure: CT angio head and neck Ordering Provider: Wing Sagastume D.O. PROCEDURE: CT ANGIO HEAD AND NECK INDICATIONS: dizziness TECHNIQUE: After the administration of intravenous contrast, 1 mm thick sections acquired from the aortic arch through the [place]. 3-dimensional hykokof-qbaykwlzl-hfnpnsrmch (MIP) and/or volume rendering reformats were acquired of the central intracranial vasculature and neck separately. For radiation dose reduction, the following was used: automated exposure control, adjustment of mA and/or kV according to patient size. COMPARISON: None. FINDINGS: Image quality: Diagnostic. Cerebral CT Angiogram: Internal carotid arteries: No acute findings. Intracranial ICA are patent with no significant stenosis. No occlusion. No aneurysm. Anterior cerebral arteries: Unremarkable. No significant stenosis. No occlusion. No aneurysm. Middle cerebral arteries: Unremarkable. No significant stenosis. No occlusion. No aneurysm. Posterior cerebral arteries: Unremarkable. No significant stenosis. No occlusion. No aneurysm. Basilar artery: Unremarkable. No significant stenosis. No occlusion. No aneurysm. Vertebral arteries: Unremarkable as visualized. Dural venous sinuses: Unremarkable given phase of enhancement. Other: Arterial phase appearance of the brain parenchyma is unremarkable. Neck CT Angiogram: Internal carotid arteries: Unremarkable. No significant stenosis. No dissection or occlusion. Common carotid arteries: Unremarkable. No significant stenosis. No dissection or occlusion. External carotid arteries: Unremarkable. No occlusion. Vertebral arteries: Unremarkable. No significant stenosis. No dissection or occlusion. Aortic Arch and Mediastinum: Partially visualized aortic arch unremarkable without evidence of aneurysm. Origins of the great vessels unremarkable. Other: Arterial phase soft tissues of the neck and chest are unremarkable. IMPRESSION: 1. No significant intracranial arterial abnormality is seen. 2. No significant abnormality is seen within the arteries of the neck. Any quantitative measurements of stenosis were performed using NASCET criteria. ECG Data Interpretation: Sinus Melo HR 59 MI 188 QRS [address]-t wave change Unchanged from 12/14/23 [facility] Narrative Medical decision making narrative: All lab work, vital signs, nurse triage note, medication list, previous ER visits, and all imaging studies reviewed. CT head and CTA head and neck and chest x-ray all showed no acute process. Troponin normal lipase [address] EKG sinus rhythm no ST T wave change. Differential diagnosis CVA TIA labyrinthitis vertigo BPPV arrhythmia. DC home on meclizine rx and to follow up with PCP if no improvement in symptoms in 1-2 weeks. Discharge Plan Departure Patient Disposition: Home Clinical Impression: Dizziness Instructions: Combating Dizziness in Older Adults Activity Restrictions/Additional Instructions: Return with new or worsening symptoms. Take your medicines as directed. Follow up PCP in 1-2 weeks if no improvement in symptoms. Prescriptions: New meclizine 25 mg tablet 25 mg PO TID Qty: 30 0RF No Action tramadol [Ultram] 50 mg tablet 50 mg PO Q6H PRN (Reason: pain) Qty: 10 0RF methocarbamol 500 mg tablet 500 mg PO TID Qty: 30 0RF Referrals: Trav Durbin MD [Primary Care Provider, Medical] Stand Alone Forms: Patient Portal/API
--- NOTE | 2025-01-08 08:47 | EKG_ITS ---
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
[2025-01-08 08:48] VITALS: PULSE 66; RESP 20; O2SAT 96
[2025-01-08 08:59] LABS: Add Manual Diff / Slide Review NO; Hematocrit 42.4 % (36-46); Hemoglobin 14.4 g/dL (12.0-16.0); Lymphocytes Absolute Auto 2100 /uL (1100-4500); Mean Corpuscular HGB Conc 33.9 % (30-36); Mean Corpuscular Hemoglobin 31.1 PG (26-34); Mean Corpuscular Volume 91.7 fL (80-100); Platelet Count 201 X10^3/uL (150-400)
[2025-01-08 09:09] VITALS: PULSE 57; RESP 23; O2SAT 97
--- NOTE | 2025-01-08 09:09 | DI.CT.S_ITS ---
PROCEDURE: CT ANGIO HEAD AND NECK INDICATIONS: dizziness TECHNIQUE: After the administration of intravenous contrast, 1 mm thick sections acquired from the aortic arch through the [place]. 3-dimensional yfoktvt-cjeyflvcy-oxuayavbjo (MIP) and/or volume rendering reformats were acquired of the central intracranial vasculature and neck separately. For radiation dose reduction, the following was used: automated exposure control, adjustment of mA and/or kV according to patient size. COMPARISON: None. FINDINGS: Image quality: Diagnostic. Cerebral CT Angiogram: Internal carotid arteries: No acute findings. Intracranial ICA are patent with no significant stenosis. No occlusion. No aneurysm. Anterior cerebral arteries: Unremarkable. No significant stenosis. No occlusion. No aneurysm. Middle cerebral arteries: Unremarkable. No significant stenosis. No occlusion. No aneurysm. Posterior cerebral arteries: Unremarkable. No significant stenosis. No occlusion. No aneurysm. Basilar artery: Unremarkable. No significant stenosis. No occlusion. No aneurysm. Vertebral arteries: Unremarkable as visualized. Dural venous sinuses: Unremarkable given phase of enhancement. Other: Arterial phase appearance of the brain parenchyma is unremarkable. Neck CT Angiogram: Internal carotid arteries: Unremarkable. No significant stenosis. No dissection or occlusion. Common carotid arteries: Unremarkable. No significant stenosis. No dissection or occlusion. External carotid arteries: Unremarkable. No occlusion. Vertebral arteries: Unremarkable. No significant stenosis. No dissection or occlusion. Aortic Arch and Mediastinum: Partially visualized aortic arch unremarkable without evidence of aneurysm. Origins of the great vessels unremarkable. Other: Arterial phase soft tissues of the neck and chest are unremarkable. IMPRESSION: 1. No significant intracranial arterial abnormality is seen. 2. No significant abnormality is seen within the arteries of the neck. Any quantitative measurements of stenosis were performed using NASCET criteria. Dictated by: Robb Layton M.D. on 01/08/2025 at 9:20 Approved by: Robb Layton M.D. on 01/08/2025 at 9:23
[2025-01-08 09:10] VITALS: BP 151/65; PULSE 59; RESP 20; O2SAT 96
[2025-01-08 09:23] LABS: Alanine Aminotransferase 26 IU/L (<35); Albumin 4.3 g/dL (3.5-5.0); Albumin Globulin Ratio 1.6 (1.0-2.8); Alkaline Phosphatase 56 U/L (38-126); Blood Urea Nitrogen 14 mg/dL (7-17); Calcium 9.2 mg/dL (8.4-10.2); Carbon Dioxide 24 mmol/L (22-32); Chloride 104 mmol/L (98-107); Creatine Kinase 57 U/L (30-135); Estimated Glomerular Filt Rate > 60 mL/min (>60); Globulin 2.7 g/dL (1.7-4.1); Glucose 103 mg/dL (70-99); HEMOLYSIS < 15 (0-50); Lipase 373 U/L (23-300); Potassium 4.2 mmol/L (3.4-5.1); Sodium 135 mmol/L (137-145); Total Protein 7.0 g/dL (6.3-8.2)
[2025-01-08 09:30] VITALS: BP 164/76; PULSE 54; RESP 20; O2SAT 97
[2025-01-08 09:34] LABS: Troponin I < 0.012 ng/mL (0.01-0.034)
[2025-01-08 10:00] VITALS: BP 170/74; PULSE 54; RESP 20; O2SAT 97
[2025-01-08] MEDS: MECLIZINE HCL 12.5 MG TABLET 25 MG PO (10:00)
== END 2025-01-08 10:18 | disposition home or self-care (01) ==
PROVIDERS: Emergency Provider Family Medicine; PCP Family Medicine
DX: R42 Dizziness and giddiness (principal); R51.9 Headache, unspecified; R00.1 Bradycardia, unspecified
CPT/HCPCS: 36415; 70450; 70496; 70498; 71045; 80053; 82550; 83690; 84484; 85025; 93005; 99284; Q9967